=== PATIENT | female | born 1990 | race Caucasian/White ===

== ENCOUNTER 2016-12-29 14:01 | Emergency (ER) | payer OTHER ==
--- NOTE | 2016-12-29 15:32 | ED ORDER SUMMARY ---
..... Patient: BRITTANI MCPHERSON OrderSheet [facility] VisitID: [id number] [address] [place] [address] 26y, F Registration Date/Time: 12/29/2016 ORDER SHEET Weight: 58.9 kg (stated) Allergies: Vantin GENERAL ORDERS: Monoscreen Urgent (14:25 12/29/2016 Gabriel Brenstein) (Ack 14:27 TBergley) (15:18 ALawrence ER Tech1) CBC w Diff Urgent (14:28 12/29/2016 Gabriel Bernstein) (Ack 14:29 TBergley) (15:18 ALawrence ER Tech1) MEDICATION ORDERS: IV FLUIDS: ORDER SHEET NOTES: [Electronically signed by Manav Peralta Dr. (15:20 12/29/2016)] [Electronically signed by Tresa Sims R.N. (19:15 01/02/2017)] [Electronically locked/signed by Tresa Sims R.N. (19:15 01/02/2017)]
--- NOTE | 2016-12-29 15:32 | ED CLINICAL REPORT ---
Clinical Report - Physicians/Mid Levels [facility] [address] [place] [address] 12/29/2016 14:03 Patient: BRITTANI MCPHERSON Time Seen: 14:11; initial patient contact. Arrived- By private vehicle. Historian- patient. HISTORY OF PRESENT ILLNESS Chief Complaint: EAR PAIN facial swelling. At its maximum, severity described as mild. When seen in the E.D., severity described as mild. Modifying factors. Not worsened by anything. Not relieved by anything. This started yesterday and is still present. No loss of appetite. She has had a mild headache and fatigue. Similar symptoms previously: None. Recent medical care: The patient was seen recently in the office (yesterday. Told it could be mumps.). REVIEW OF SYSTEMS The patient has had fever, chills and a headache. No sore throat, sinus drainage, nasal congestion, difficulty breathing or abdominal pain. No nausea, vomiting or diarrhea. All systems otherwise negative, except as recorded above. PAST HISTORY Negative. Surgeries: Tonsillectomy. SOCIAL HISTORY Never smoker. Occasional alcohol use. No drug use. ADDITIONAL NOTES The nursing notes have been reviewed. PHYSICAL EXAM Vital Signs: 12/29/2016 14:11 BP: 143/80. HR: 99. RR: 16. O2 saturation: 100%. Temp: 98.8 F. Pain level now: 5/10. Have been reviewed. Hypertensive. Heart rate normal. Respiratory rate normal. Temperature normal. Oxygen saturation normal. Appearance: Alert. No acute distress. Eyes: Eyes normal inspection. ENT: Ears normal. Pharynx normal. (R sided facial swelling). Neck: Moderate right anterior neck and moderate left anterior neck lymphadenopathy present. No meningeal signs. CVS: Normal heart rate and rhythm. Heart sounds normal. Respiratory: No respiratory distress. Breath sounds normal. Abdomen: Soft and nontender. Bowel sounds normal. Skin: Skin warm and dry. Normal skin color. No rash. Neuro: Oriented X 3. No motor deficit. LABS, X-RAYS, AND EKG Laboratory Tests: Monoscreen: (JERONIMO: 12/29/2016 14:33) ( MsgRcvd 12/29/2016 14:53) Final results Test Result Flag Units (Reference) MONOSCREEN NEGATIVE (NEGATIVE) CBC w Diff: (JERONIMO: 12/29/2016 14:33) ( MsgRcvd 12/29/2016 14:42) Final results Test Result Flag Units (Reference) WHITE BLOOD COUNT 3.0 L K/uL (4.5-11.5) RED BLOOD COUNT 4.68 M/uL (4.00-5.20) HEMOGLOBIN 13.7 gm/dL (12.0-16.0) HEMATOCRIT 40.4 % (36.0-46.0) MEAN CELL VOLUME 86 fL (80-100) MEAN CORPUSCULAR HGB 29 pg (26-34) MEAN CORPUSCULAR HGB CONC 34 g/dL (31-37) RED CELL DISTRIBUTION WIDTH 13.6 % (11.6-14.8) PLATELET COUNT 143 L K/uL (150-400) NEUTROPHIL % 63.6 % (50-75) LYMPH % 21.3 L % (25-40) MONO % 13.9 % (3-14) EOSINOPHIL % 0.5 % (0-4) BASOPHIL % 0.7 % (0-2) . CLINICAL IMPRESSION Parotitis- acute sialoadenitis. INSTRUCTIONS Alternate Tylenol (Acetaminophen) or Motrin (Ibuprofen) for fever. Take according to label instructions. Do not work for two days. Your Current Medications: CONTINUE TAKING THE FOLLOWING MEDICATIONS: None*. Follow-up: Follow up with your doctor in about two days. Call for an appointment. Screening today revealed the patient's blood pressure to be in the hypertensive range. The patient should follow up with a primary care provider for blood pressure management. (Electronically signed by Manav Peralta Dr. 12/29/2016 15:20)
--- NOTE | 2016-12-29 15:32 | ED ORDER SUMMARY ---
..... Patient: BRITTANI MCPHERSON OrderSheet [facility] VisitID: [id number] [address] [place] [address] 26y, F Registration Date/Time: 12/29/2016 ORDER SHEET Weight: 58.9 kg (stated) Allergies: Vantin GENERAL ORDERS: Monoscreen Urgent (14:25 12/29/2016 Gabriel Bernstein) (Ack 14:27 TBergley) (15:18 ALawrence ER Tech1) CBC w Diff Urgent (14:28 12/29/2016 Gabriel Bernstein) (Ack 14:29 TBergley) (15:18 ALawrence ER Tech1) MEDICATION ORDERS: IV FLUIDS: ORDER SHEET NOTES: [Electronically signed by Manav Peralta Dr. (15:20 12/29/2016)] [Electronically signed by Tresa Sism R.N. (19:15 01/02/2017)] [Electronically locked/signed by Tresa Sims R.N. (19:15 01/02/2017)]
--- NOTE | 2016-12-29 15:32 | ED NURSING NOTES ---
Clinical Report - Nurses [facility] [address] [place] [address] 12/29/2016 14:03 Patient: BRITTANI MCPHERSON TRIAGE Triage time 14:Dec 29 2016. Acuity: LEVEL 3. Chief Complaint: (swollen gland to right side neck). Alert. No acute distress. LINDA COMA SCORE: [place] Coma Scale: 15- eyes open spontaneously (4); best verbal response- oriented x 4 (5); best motor response- obeys commands (6). --14:15 Tresa Sims R.N. 14:11 12/29/16. BP: 143/80. HR: 99. RR: 16. O2 saturation: 100%. Temp: 98.8 F. Pain level now: 01/15. --14:15 Tresa Sims R.N. Weight: 58.9 kg stated. Height/Length: 66 inches Per Patient. BMI: 21. --14:15 Tresa Sims R.N. Medications None. --14:12 Tresa Sims R.N. Allergies Vantin. --14:12 Tresa Sims R.N. History Arrived by private vehicle. Historian: patient. This started yesterday. She has had low grade measured temperature of 100.3 F. 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 PAST MEDICAL HX: Immunizations: up-to-date. Last normal menstrual period now. Denies current . SOCIAL HX: Never smoker. Occasional alcohol use. No drug use. No infectious disease exposure. SELF HARM ASSESSMENT: A self harm assessment was performed. The patient answered "no" to the question "Do you have thoughts of harming or killing yourself?". FALL RISK ASSESSMENT: Fall risk assessment completed. No fall risk identified. NUTRITIONAL RISK ASSESSMENT: The nutritional risk assessment revealed no deficiencies. FUNCTIONAL ASSESSMENT: Functional assessment: no impairments noted. LEARNING NEEDS ASSESSMENT: The learning needs assessment revealed no barriers. ABUSE ASSESSMENT: Abuse assessment: The patient was asked "Do you feel safe in your home?". SKIN INTEGRITY ASSESSMENT: Skin integrity risk assessment completed. No skin integrity risk identified. --14:15 Tresa Sims R.N. ADDITIONAL SURGERIES: Tonsillectomy. --14:13 Tresa Sims R.N. Interventions ID band on patient. To room. --14:15 Tresa Sims R.N. PHYSICAL ASSESSMENT GENERAL / NEURO / PSYCH: Alert. Oriented X 4. Appears in no acute distress. HEENT: Pharyngeal erythema. RESPIRATORY: Respirations not labored. CVS: Capillary refill less than 2 seconds. GI / : Abdomen soft and nontender. SKIN: Skin is warm and dry. --14:17 Tresa Sims R.N. NURSING PROGRESS NOTES Patient gowned. Head of bed elevated. Patient identifiers checked. Call light placed in reach. Side rails up x 1. Bed placed in lowest position. Brakes of bed on. --14:17 Tresa Sims R.N. DISPOSITION / DISCHARGE Departure time: :Dec 29 2016. Condition at departure: unchanged. The following issues were addressed: pain control and comfort issues. No learning barriers present. Discharge instructions provided and reviewed with the patient. Reviewed referral to a primary care physician. Work note given. Patient verbalized understanding. Written instructions provided in Yakut. The patient was discharged home. She left the Emergency Department ambulatory and via private vehicle. Patient driving. FALL RISK ASSESSMENT: Fall risk assessment completed. No fall risk identified. LINDA COMA SCORE: [place] Coma Scale: 15- eyes open spontaneously (4); best verbal response- oriented x 4 (5); best motor response- obeys commands (6). --15:27 Tresa Sims R.N. 15:26 12/29/16. BP: 112/50. HR: 82. RR: 16. O2 saturation: 100%. Pain level now: 04/17. --15:27 Tresa Sims R.N. Locked/Released at 01/02/2017 19:15 by Tresa Sims R.N.
--- NOTE | 2016-12-29 15:32 | ED NURSING NOTES ---
Clinical Report - Nurses [facility] [address] [place] [address] 12/29/2016 14:03 Patient: BRITTANI MCPHERSON TRIAGE Triage time 14:Dec 29 2016. Acuity: LEVEL 3. Chief Complaint: (swollen gland to right side neck). Alert. No acute distress. LINDA COMA SCORE: [place] Coma Scale: 15- eyes open spontaneously (4); best verbal response- oriented x 4 (5); best motor response- obeys commands (6). --14:15 Tresa Sims R.N. 14:11 12/29/16. BP: 143/80. HR: 99. RR: 16. O2 saturation: 100%. Temp: 98.8 F. Pain level now: 01/15. --14:15 Tresa Sims R.N. Weight: 58.9 kg stated. Height/Length: 66 inches Per Patient. BMI: 21. --14:15 Tresa Sims R.N. Medications None. --14:12 Tresa Sims R.N. Allergies Vantin. --14:12 Tresa Sims R.N. History Arrived by private vehicle. Historian: patient. This started yesterday. She has had low grade measured temperature of 100.3 F. 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 PAST MEDICAL HX: Immunizations: up-to-date. Last normal menstrual period now. Denies current . SOCIAL HX: Never smoker. Occasional alcohol use. No drug use. No infectious disease exposure. SELF HARM ASSESSMENT: A self harm assessment was performed. The patient answered "no" to the question "Do you have thoughts of harming or killing yourself?". FALL RISK ASSESSMENT: Fall risk assessment completed. No fall risk identified. NUTRITIONAL RISK ASSESSMENT: The nutritional risk assessment revealed no deficiencies. FUNCTIONAL ASSESSMENT: Functional assessment: no impairments noted. LEARNING NEEDS ASSESSMENT: The learning needs assessment revealed no barriers. ABUSE ASSESSMENT: Abuse assessment: The patient was asked "Do you feel safe in your home?". SKIN INTEGRITY ASSESSMENT: Skin integrity risk assessment completed. No skin integrity risk identified. --14:15 Tresa Sims R.N. ADDITIONAL SURGERIES: Tonsillectomy. --14:13 Tresa Sims R.N. Interventions ID band on patient. To room. --14:15 Tresa Sims R.N. PHYSICAL ASSESSMENT GENERAL / NEURO / PSYCH: Alert. Oriented X 4. Appears in no acute distress. HEENT: Pharyngeal erythema. RESPIRATORY: Respirations not labored. CVS: Capillary refill less than 2 seconds. GI / : Abdomen soft and nontender. SKIN: Skin is warm and dry. --14:17 Tresa Sims R.N. NURSING PROGRESS NOTES Patient gowned. Head of bed elevated. Patient identifiers checked. Call light placed in reach. Side rails up x 1. Bed placed in lowest position. Brakes of bed on. --14:17 Tresa Sims R.N. DISPOSITION / DISCHARGE Departure time: :Dec 29 2016. Condition at departure: unchanged. The following issues were addressed: pain control and comfort issues. No learning barriers present. Discharge instructions provided and reviewed with the patient. Reviewed referral to a primary care physician. Work note given. Patient verbalized understanding. Written instructions provided in Malay. The patient was discharged home. She left the Emergency Department ambulatory and via private vehicle. Patient driving. FALL RISK ASSESSMENT: Fall risk assessment completed. No fall risk identified. LINDA COMA SCORE: [place] Coma Scale: 15- eyes open spontaneously (4); best verbal response- oriented x 4 (5); best motor response- obeys commands (6). --15:27 Tresa Sims R.N. 15:26 12/29/16. BP: 112/50. HR: 82. RR: 16. O2 saturation: 100%. Pain level now: 04/17. --15:27 Tresa Sims R.N. Locked/Released at 01/02/2017 19:15 by Tresa Sims R.N.
--- NOTE | 2017-01-02 19:15 | ED MAR SUMMARY ---
..... Medication Administration Record [facility] [address] [place], [place] [id number] Patient: VIDABRITTANI Visit ID: [id number] 26y, F Weight: 58.9 kg Height/Length: 66 in BMI: 21 ALLERGIES: Vantin
--- NOTE | 2017-01-02 19:15 | ED DISCHARGE INSTRUCTIONS ---
Patient: BRITTANI MCPHERSON General Instructions [facility] VisitID: [id number] [place] [address] 26y, F Registration Date/Time: 12/29/2016 Parotitis- acute sialoadenitis. INSTRUCTIONS Alternate Tylenol (Acetaminophen) or Motrin (Ibuprofen) for fever. Take according to label instructions. Do not work for two days. Your Current Medications: CONTINUE TAKING THE FOLLOWING MEDICATIONS: None*. Follow-up: Follow up with your doctor in about two days. Call for an appointment. Screening today revealed the patient's blood pressure to be in the hypertensive range. The patient should follow up with a primary care provider for blood pressure management. ADDITIONAL INFORMATION Salivary Gland Swelling, Uncertain Cause Salivary glands make saliva in response to food in your mouth. Saliva is mostly water, but also has minerals and proteins that help break down food and keep the mouth and teeth healthy. There are three pairs of salivary glands: Parotid glands (in front of the ear) Submandibular glands (below the jaw) Sublingual glands (below the tongue) Each gland has a duct (channel) that allows saliva to flow from the gland into the mouth. Swelling of the salivary gland can occur due to disease within the gland or the duct being blocked. Diseases that cause salivary gland swelling include: Viral infection (mumps) Bacterial infection Tumor (most are benign) Cyst Chemotherapy or head and neck radiation for cancer Problems that block the salivary duct include: Salivary stone Sludge (sand-like particles) Stricture (narrowing) Certain medicines (some antidepressants, antihistamines, anti-psychotics, sedatives, methyldopa, and diuretics) can reduce salivary flow and cause swelling of the gland. Diagnosis can be made using blood tests X-ray, ultrasound, CT scan or injection of dye into the duct to look for blockage. Treatment depends on the exact cause of the swelling. Home Care: Drink 6-8 glasses of fluid per day (water, juices, tea, soup, etc.) to keep well-hydrated. If you smoke, quit smoking. Maintain good dental hygiene: brush your teeth, floss, and use mouthwash. If it is determined that no stone is present, but you have gland swelling during meals, there may be sludge blocking the duct, or the duct may be narrowed. Gently massaging the gland and sucking on lemon drops after a meal may help reduce the symptoms. Follow Up with your doctor or as advised by our staff. Get Prompt Medical Attention if any of the following occur: Increasing pain or swelling in the gland Fever of 100.4F (38C) or higher, or as directed by your healthcare provider Redness over the gland Pus draining into the mouth Mumps Mumps is a viral illness that infects the salivary glands. These glands produce saliva in the mouth. The main salivary gland (parotid gland) is located at the angle of the jaw, just below the ear, on each side of the face. During a mumps infection these glands become swollen and tender. The ears may hurt although there is no ear infection. There may also be a rash. Mumps most often occurs in children 5-14 years, but does occasionally occur in adolescents and young adults, as well. Mumps causes a low grade fever, headache and loss of appetite. Usually, both parotid glands swell and give a puffy cheeks. Swelling and pain in these glands increases over 1-3 days. It may hurt to swallow, talk, chew or drink acidic juices. (Acid foods stimulate the parotid gland to produce saliva). In rare cases, mumps can involve the brain (causing encephalitis), and the lining of the spinal cord (causing meningitis). Adolescents and young men with a case of mumps may develop orchitis, a painful swelling of the testicles. Young women may develop mumps infection in the ovary. This causes pain in the abdomen. If you have mumps, you are contagious two days before symptoms begin until five days after the symptoms disappear. The virus spreads through the air by coughing and sneezing, or by direct contact (touching the sick person and then touching your own eyes, nose, or mouth). It takes about 2-3 weeks to develop the infection after an exposure. It takes 10 to 12 days to recover. Treatment is aimed at symptom relief only. Since mumps is caused by a virus, it cannot be treated with antibiotics. Home Care: Either hot or cold packs applied to the cheeks may give relief. Apply an ice pack (ice cubes in a plastic bag, wrapped in a towel) over the injured area for 20 minutes every 1-2 hours as needed. When using heat, you may apply a towel soaked in warm water and placed inside a plastic bag. A gel pack (available in drug stores) can be frozen or warmed in a microwave. Wrap this in a cloth or towel to protect the skin from too much hot or cold. Use the method that feels best. Drink plenty of fluids. Eat a soft, bland diet that does not require a lot of chewing. Avoid acidic fruit juices (orange juice, grapefruit juice, lemonade). You may use acetaminophen (Tylenol) or ibuprofen (Motrin, Advil) to control pain and fever, unless another medicine was prescribed for this. [NOTE: If you have chronic liver or kidney disease or ever had a stomach ulcer or GI bleeding, talk with your doctor before using these medicines.] (Aspirin should never be used in anyone under 18 years of age who is ill with a fever. It may cause severe liver damage.) If you are a male with testicle pain, use scrotal support (briefs instead of boxers) and ice packs for testicular pain. Anyone with mumps should not go back to child neurologist, school or work for 5 days after symptoms begin. Follow Up with your doctor as advised by our staff.Anyone who has come in contact with you while sick should review their immunization status with their doctor. If they have not received mumps vaccine (included in the MMR vaccine), theyshould be vaccinated.Notify your doctor if you are . Mumps increases the risk of miscarriage in the first trimester of . Get Prompt Medical Attention if any of the following occur: Stiff neck, severe headache, convulsions (seizures), extreme drowsiness, or changes in alertness. Testicle pain Fever of 100.4F (38C) oral or higher, not better with fever medication Nausea, vomiting or abdominal pain Hearing loss in one or both ears Fever Control (Adult) A fever is a natural reaction of the body to an illness. In most cases, the temperature itself is not harmful. It actually helps the body fight infections. A fever does not need to be treated unless you feel very uncomfortable. Home Care If you feel warm, check your temperature. If you feel very uncomfortable and your temperature is at or higher than 100.4F (38C) oral, you may take acetaminophen (Tylenol) every 4 to 6 hours. If you cant take or keep down oral medicine, ask your pharmacist for Tylenol suppositories, which you can get without a prescription. If the fever does not respond to acetaminophen within 1 hour, take ibuprofen (Advil or Motrin). If this works, keep taking the ibuprofen every 6 to 8 hours. Note: If you have chronic liver or kidney disease or ever had a stomach ulcer or GI bleeding, talk with your doctor before using these medications. If either medication alone does not keep the fever down, you may alternate the two medicines every 3 to 4 hours, only if your healthcare provider has instructed you to do so. For example, take Motrin then wait 3 hours, take Tylenol then wait 3 hours, take Motrin, and so on. Follow your healthcare providers instructions exactly. Clothing: Keep clothing light because excess body heat is lost through the skin. The fever will go up if you wear extra layers or wrap in blankets. Fluids: Fever causes the body to lose water through evaporation. Drink plenty of fluids such as water, juice, clear sodas, jane ted, or lemonade. Do not use aspirin in anyone under 18 years of age who is ill with a fever. It can cause severe liver damage. Follow Up with your doctor or as advised by our staff if you do not get better after 48 hours. Get Prompt Medical Attention if any of the following occur: Fever does not get better after taking fever medication Fast or difficult breathing Earache, sinus pain, stiff or painful neck, headache, repeated diarrhea or vomiting You feel unusually irritable, drowsy, or confused A rash appears You feel weak or dizzy, or that you might faint You have been given the following additional information: Salivary Gland Swelling, Unk Cause Mumps Fever Control (Adult) Do not work for two days. (Electronically signed by Manav Peralta Dr. 12/29/2016 15:20)
--- NOTE | 2017-01-02 19:15 | ED MED RECONCILIATION SUMMARY ---
Patient: BRITTANI MCPHERSON Medication Reconciliation Report [facility] VisitID: [id number] [address] [place] [address] 26y, F Registration Date/Time: 12/29/2016 Weight: 58.9 kg Height/Length: 66 in. BMI: 21.0 ALLERGIES: Vantin The patient's Home Medications are listed below: NONE. The source(s) of the original Home Medication information: Not obtained. The following Medications were given to the patient in the Emergency Department: None. The following Medications were prescribed to the patient: None.
--- NOTE | 2017-01-02 19:15 | ED MAR SUMMARY ---
..... Medication Administration Record [facility] [address] [place], [place] [id number] Patient: VIDABRITTANI Visit ID: [id number] 26y, F Weight: 58.9 kg Height/Length: 66 in BMI: 21 ALLERGIES: Vantin
--- NOTE | 2017-01-02 19:15 | ED MED RECONCILIATION SUMMARY ---
Patient: BRITTANI MCPHERSON Medication Reconciliation Report [facility] VisitID: [id number] [address] [place] [address] 26y, F Registration Date/Time: 12/29/2016 Weight: 58.9 kg Height/Length: 66 in. BMI: 21.0 ALLERGIES: Vantin The patient's Home Medications are listed below: NONE. The source(s) of the original Home Medication information: Not obtained. The following Medications were given to the patient in the Emergency Department: None. The following Medications were prescribed to the patient: None.
== END 2016-12-29 15:27 | disposition home or self-care (01) ==
LOC: ED SRH 14:01
DX: K11.21 Acute sialoadenitis (principal); Z88.1 Allergy status to other antibiotic agents
CPT/HCPCS: 90074; 95059; 98370